=== PATIENT | female | born 1950 | race Two or more races ===

== ENCOUNTER 2024-08-17 19:02 | Emergency (ER) | payer BC, MEDICARE, SELFPAY ==
[2024-08-17 19:54] VITALS: BP 188/77; PULSE 61; RESP 20; TEMP 36.6; O2SAT 98
--- NOTE | 2024-08-17 20:04 | XR_ITS ---
Examination: Duplex scan of the lower extremity, unilateral right complete Date and time of exam: August 17, 2024 2145 hours INDICATIONS: Right leg pain beginning 2 days ago Technique: Duplex scan of the extremity veins using B-mode/grayscale imaging and Doppler spectral analysis and color flow Attention is directed to internal echogenicity, compression and augmentation involving these veins, color flow assessment, spectral analysis Findings: Major deep venous structures in the extremity demonstrate normal course and caliber. There is no evidence of deep vein thrombosis. Normal color flow and spectral analysis Impression: Negative for DVT..
[2024-08-17] MEDS: KETOROLAC INJ 60 MG/2 ML VIAL 30 MG IM (20:13)
[2024-08-17] MEDS: GABAPENTIN 300 MG CAPSULE PO (22:19)
[2024-08-17] MEDS: HYDROcodone/APAP 5/325 TABLET 1 TAB PO (22:19)
--- NOTE | 2024-08-18 03:34 | EDNOTE_ITS ---
<Statement entered by Candy Hutchison MD - 08/19/24 04:27> As co-signing physician, I was present and available for consult prn. I concur with the plan and care as documented by the midlevel provider. ED Extremity Problem RME/HPI General Chief complaint: Abdominal Pain Stated complaint: RIGHT ABD PAIN X YESTERDAY Time Seen by Provider: 08/17/24 20:04 Arrival date/time: 08/17/24 19:02 74F with history of HTN, HLD, and depression presents to ED with 2 days of R lower back pain that radiates down RLE along sciatic nerve path. Patient denies, CP, dizziness, leg swelling, SOB, and fall. Pain is with with movement and certain positions. Limitations: no limitations Related Data Home Medications ?Medication ?Instructions ?Recorded ?Confirmed atorvastatin 40 mg tablet 40 mg PO DAILY High Choleste rol 06/18/17 06/18/17 citalopram 40 mg tablet 40 mg PO DAILY 06/18/1707/03 Previous Rx's ?Medication ?Instructions ?Recorded docusate sodium 100 mg capsule 100 mg PO BID #60 caps 06/22/17 (Colace) tramadol 50 mg tablet 50 mg PO QID PRN pain #40 ta bs 06/22/17 Allergies Allergy/AdvReac Type Severity Reaction Status Date / Time No Known Allergies Allergy Verified 08/17/24 19:05 Review of Systems Review of Systems Systems Reviewed: All systems reviewed, normal except as documented Constitutional Constitutional: Reports system reviewed and no additional complaints, except as documented, Denies fever(s) and Denies headache(s) ENT Ears, Nose, Mouth, and Throat: Denies disequilibrium and Denies headache(s) Cardiovascular Cardiovascular: Reports system reviewed and no additional complaints, except as documented, Denies chest pain and Denies dyspnea Respiratory Respiratory: Reports system reviewed and no additional complaints, except as documented, Denies cough and Denies dyspnea Gastrointestinal Gastrointestinal: Reports system reviewed and no additional complaints, except as documented, Denies abdominal pain, Denies nausea and Denies vomiting Musculoskeletal Musculoskeletal: Reports as per HPI, Reports back pain and Reports radiating pain into limb Neurologic Neurologic: Reports system reviewed and no additional complaints, except as documented, Denies confusion, Denies disequilibrium and Denies headache(s) Psychiatric Psychiatric: Denies confusion Past Medical History Past Medical History CARDIAC: Positive Hypercholesterolemia and Hypertension; Negative Cardiac Disorders PSYCHO/SOCIAL: Positive Depression OTHER HISTORY: Negative Blood Transfusions, Blood Transfusion Reaction or Anesthesia Reactions Surgical History SURGICAL: Positive Hysterectomy Social History SMOKING STATUS: Never smoker SECOND HAND EXPOSURE: Yes SUBSTANCE USE: does not use ED Exam General Limitations: Present no limitations General appearance: Present alert and in no apparent distress Head Head exam: Present atraumatic Eye Eye exam: Present normal appearance, PERRL and EOMI ENT ENT exam: Present normal exam, normal oropharynx and mucous membranes moist Neck Neck exam: Present normal inspection, full ROM and trachea midline Chest Chest inspection: Present normal inspection and symmetric chest wall rise Respiratory Respiratory exam: Present normal lung sounds bilaterally Cardiovascular Cardiovascular exam: Present regular rate, normal rhythm and normal heart sounds Abdominal Exam Abdominal exam: Present soft and normal bowel sounds Extremities Exam Extremities exam: Present normal inspection and full ROM Back Exam Back exam: Present normal inspection and full ROM Neurological Exam Neurological exam: Present alert, oriented X3 and CN II-XII intact Psychiatric Psychiatric exam: Present normal affect and normal mood Skin Skin exam: Present warm, dry, intact and normal color Course Quality Measures none Orders Category Date Time Status US venous doppler LE RT Stat Exams 08/17/24 20:04 Completed Gabapentin [Neurontin] Med 08/17/24 21:55 Discontinued 300 mg PO X1 ONE HYDROcodone*/APAP 5/325 [[place] 5/325] Med 08/17/24 21:55 Discontinued 1 tab PO X1 ONE Ketorolac Inj [Toradol Inj] Med 08/17/24 20:04 Discontinued 30 mg IM X1 ONE Vital Signs Vital signs: Vital Signs Temperature 98 F 08/17/24 19:54 Pulse Rate 61 08/17/24 19:54 Respiratory Rate 20 08/17/24 19:54 Blood Pressure 188/77 H 08/17/24 19:54 Pulse Oximetry (%) 98 08/17/24 19:54 Oxygen Delivery Method Room Air 08/17/24 19:54 O2 at 98% on RA and WNLs Extremity Problem MDM Narrative MDM Narrative:: 74F with history of HTN, HLD, and depression presents to ED with 2 days of R lower back pain that radiates down RLE along sciatic nerve path. Patient denies, CP, dizziness, leg swelling, SOB, and fall. Pain is with with movement and certain positions. Physical exam reveals welll-appearing female. Patient is afebrile, calm, and alert. US neg for DVT. Resistor Inspector and meds given. Patient data External records reviewed:: [facility] previous records Clinical information provided by:: patient Social determinants that could affect healthcare access:: none Patient has the following chronic illnesses:: HTN, HLD, depression How is presenting disease/condition affected by chronic disease/condition?: exacerbated by Evaluation data The following diagnostics were reviewed and interpreted by me:: radiology exam(s) Lab and/or radiology exams considered but not ordered:: ordered Interpretation Summary: above Medications / Prescriptions Medications or Prescriptions considered but not ordered:: ordered Medication administrations:: Medication Administration History Discontinued Medications Hydrocodone Bitart/Acetaminophen (Hydrocodone/Apap 5/325 Tablet) 1 tab PO X1 ONE Stop: 08/17/24 21:56 Last Admin: 08/17/24 22:19 Dose: 1 tab Documented By: Gabapentin (Gabapentin 300 Mg Capsule) 300 mg PO X1 ONE Stop: 08/17/24 21:56 Last Admin: 08/17/24 22:19 Dose: 300 mg Documented By: Ketorolac Tromethamine (Ketorolac Inj 60 Mg/2 Ml Vial) 30 mg IM X1 ONE Stop: 08/17/24 20:05 Last Admin: 08/17/24 20:13 Dose: 30 mg Documented By: above Consultations Consultation(s) initiated? (list below): No Diagnosis Extremity Problem Differential Diagnosis: herpes zoster, gout, cellulitis, superficial thrombophlebitis, deep venous thrombosis of upper extremity, lower extremity edema, deep vein thrombosis of lower extremity and other (scatica) Most likely diagnosis given after review of the tests above:: scatica Admission Indicated Admission indicated?: not indicated Admission Request Was there a request for admission?: No Disposition Plan Disposition Plan: Discharge Discharge Attestation Discharge Attestation: The patient and all family members were given an opportunity to ask questions and understood the discharge instructions. Discharge instructions specifically effects, indications for sooner follow up or return to the emergency department, and the expected course of current diagnosis. Patient condition: Stable Discharge Plan Plan Patient Disposition: HOME (Self Care) Discharge Disposition comment: Stable Prescriptions/Referrals Prescriptions/Med Rec: No Action citalopram 40 mg Tablet 40 mg PO DAILY atorvastatin 40 mg Tablet 40 mg PO DAILY tramadol 50 mg tablet 50 mg PO QID MDD 8 PRN (Reason: pain) Qty: 40 0RF docusate sodium [Colace] 100 mg capsule 100 mg PO BID Qty: 60 0RF Referrals: No Primary/Family,Physician [Primary Care Provider] - In 1 week Problem List Clinical Impression: Sciatica Patient/Caregiver Discharge Instructions Education Materials: ED Sciatica Additional Instructions: Please follow-up with PCP within 24-48 hours and return immediately if symptoms worsen. If problem persists, recommend outpatient PT and/or MRI follow-up. In the meantime, rest, use ice/heat, and/or compression. Print Language: Cameroonian Stand Alone Forms: Cortney Award Info., Patient Portal Info Letter PA/AUTOMOBILE UPHOLSTERY TRIM INSTALLER Supervising Physician PA/AUTOMOBILE UPHOLSTERY TRIM INSTALLER Supervising Physician: Dr. Hutchison
== END 2024-08-17 23:59 | disposition home or self-care (01) ==
PROVIDERS: Emergency Provider Emergency Medicine
DX: M54.41 Lumbago with sciatica, right side (principal); I10 Essential (primary) hypertension; E78.5 Hyperlipidemia, unspecified; F32.A Depression, unspecified
CPT/HCPCS: 93971; 96372; 99284; J1885; A9270

== ENCOUNTER 2025-01-28 15:10 | Emergency (ER) | payer MEDICARE, SELFPAY ==
[2025-01-28 15:28] VITALS: BP 151/75; PULSE 71; RESP 20; TEMP 36.6; O2SAT 97; BMI 29.7
--- NOTE | 2025-01-28 15:36 | XR_ITS ---
Examination: Abdomen sonogram, Limited Date and time of exam: January 28, 2025, 1627 hours INDICATIONS: Onset epigastric pain today Technique: Real-time cox scale transabdominal sonographic images of the upper abdomen obtained. Findings: Absent gallbladder Common bile duct 0.5 cm Pancreatic head 2.9 cm Liver 13.5 cm fatty infiltration Normal hepatopetal portal venous Patent IVC IMPRESSION: Absent gallbladder Normal common bile duct
--- NOTE | 2025-01-28 15:36 | XR_ITS ---
EXAMINATION: PA chest single view TECHNIQUE: Upright PA chest single view Date and time: January 28, 2025, 1552 hours INDICATIONS: Chest pain today. FINDINGS: Normal heart size Probable fat pad at the left cardiophrenic angle. No pneumonia or pulmonary edema IMPRESSION: No pneumonia or pulmonary edema
--- NOTE | 2025-01-28 15:36 | EKG_ITS ---
[facility] Test Date: 2025-01-28 Pat Name: BELA VEGA Department: Room: - Gender: Female Pricer Bagger: : 1950 Requested By: Wendi Jiang Order Number: [id number] Reading MD: Wendi Jiang Measurements Intervals [place] Rate: 70 P: 18 OH: 169 QRS: 37 QRSD: 81 T: 29 QT: 400 QTc: 432 Interpretive Statements SINUS RHYTHM No previous ECG available for comparison /store/S0/[id number].pdf
[2025-01-28 16:28] LABS: Basophils # (Auto) 0.0 Thou/mm3 (0.0-0.2); Basophils % (Auto) 0 % (0-2.5); Eosinophils # (Auto) 0.1 Thou/mm3 (0.0-0.5); Eosinophils % (Auto) 1 % (0-10); Hematocrit 39.0 % (36.0-46.0); Hemoglobin 13.8 g/dL (12.0-16.0); Immature Granulocytes Auto 0.04 Thou/mm3 (0.00-0.00); Lymphocytes # (Auto) 3.0 Thou/mm3 (1.0-4.8); Lymphocytes % (Auto) 27 % (10-50); Mean Corpuscular HGB Conc 35.4 g/dl (31.0-37.0); Mean Corpuscular Hemoglobin 31.4 pg (25.0-35.0); Mean Corpuscular Volume 89 fL (80-100); Monocytes # (Auto) 1.0 Thou/mm3 (0.0-0.8); Monocytes % (Auto) 9 % (0-12); Neutrophils # (Auto) 6.9 Thou/mm3 (1.8-7.7); Neutrophils % (Auto) 63 % (37-80); Nucleated Red Blood Cell # 0.00 Thou/mm3 (0.00-0.00); Nucleated Red Blood Cell % 0 /100 WBC (0); Platelet Count 356 Thou/mm3 (140-440); RDW Standard Deviation 39.4 fL (36.4-46.3); Red Blood Count 4.40 Miln/mm3 (4.00-5.20); White Blood Count 11.1 Thou/mm3 (3.6-11.0)
[2025-01-28 16:31] LABS: Collection Type, Urine Clean Catch
[2025-01-28 16:35] LABS: Alanine Aminotransferase 43 U/L (10-49); Albumin, Serum 4.8 gm/dL (3.4-4.8); Albumin/Globulin Ratio 1.9 (1.2-2.2); Alkaline Phosphatase 129 U/L (46-116); Anion Gap 12 (7-16); Aspartate Amino Transferase 18 U/L (0-34); BUN/Creatinine Ratio 7 Ratio (12-20); Bilirubin,Total 0.5 mg/dL (0.3-1.2); Blood Urea Nitrogen < 5 mg/dL (9-23); Calcium 9.8 mg/dL (8.3-10.6); Calcium (Corrected) 9.8 mg/dL (8.5-10.1); Carbon Dioxide 21.9 mMol/L (20.0-31.0); Chloride 107 mMol/L (98-107); Creatinine (Component) 0.7 mg/dL (0.6-1.3); Estimated Creatinine Clearance 68.9 mL/min (>60); Globulin 2.5 gm/dL (2.3-3.5); Glucose 109 mg/dL (74-106); Lipase 52 U/L (12-53); Osmolality,Calculated 279 (275-295); Potassium 4.0 mMol/L (3.4-5.1); Sodium 141 mMol/L (136-145); Total Protein 7.3 gm/dL (5.7-8.2); Troponin I < 0.020 ng/mL (0.0-0.045); eGFR > 60 See Note
[2025-01-28 17:23] LABS: B-Type Natriuretic Peptide 46 pg/mL (0-100)
[2025-01-28 17:23] LABS: Bacteria,Urine 1+; Bilirubin,Urine Negative (Negative); Blood,Urine Negative (Negative); Clarity,Urine Clear (Clear/Hazy); Color,Urine Lt-Yellow (Lt Yel-Yel); Glucose, Urine Negative (Negative); Ketones,Urine 1+ (Negative); Leukocyte Esterase,Urine Positive (Negative); Nitrite,Urine Negative (Negative); PH,Urine 6.5 (5.0-7.0); Protein,Urine Negative (Neg - Trace); RBC,Urine 1 /hpf (0-3); Specific Gravity,Urine 1.009 (1.001-1.035); Squamous Epithelial Cell,Urine 6 /hpf (0-5); Urobilinogen,Urine Negative mg/dL (0.0-1.0); WBC,Urine 8 /hpf (0-5)
--- NOTE | 2025-01-28 17:47 | PD.EDABDPN ---
ED Abdominal Pain RME/HPI General Chief Complaint: Anxiety Stated complaint: Anxiety/burning sensation through body Time seen by provider: 01/28/25 15:29 Arrival date/time: 01/28/25 15:10 This is a case of 75-year-old female with history of anxiety and hypercholesterolemia with cholecystectomy came in in the emergency room due to epigastric pain for 3 days radiating to anterior chest wall no chest pain no palpitation no nausea no vomiting no constipation no diarrhea no fever no chills no blood in the stool patient also verbalized that she felt anxious and asking for medication denies any suicidal nor homicidal ideation denies any hallucination persistence of the symptoms this patient decided to start consult here in the emergency room Limitations: no limitations Related Data Home Medications ?Medication ?Instructions ?Recorded ?Confirmed atorvastatin 40 mg tablet 40 mg PO DAILY High Cholesterol 06/18/17 06/18/17 citalopram 40 mg tablet 40 mg PO DAILY 06/18/17 06/18/17 Previous Rx's ?Medication ?Instructions ?Recorded docusate sodium 100 mg capsule 100 mg PO BID #60 caps 06/22/17 (Colace) tramadol 50 mg tablet 50 mg PO QID PRN pain #40 tabs 06/22/17 famotidine 20 mg tablet (Pepcid) 20 mg PO BID #60 tabs 01/28/25 nitrofurantoin 100 mg PO BID #20 caps 01/28/25 monohydrate/macrocrystals 100 mg capsule (Macrobid) omeprazole 20 mg capsule,delayed 20 mg PO QDAY 30 days #30 caps 01/28/25 release Allergies Allergy/AdvReac Type Severity Reaction Status Date / Time No Known Allergies Allergy Verified 08/17/24 19:05 Review of Systems Review of Systems Systems Reviewed: All systems reviewed, normal except as documented Constitutional Constitutional: Reports system reviewed and no additional complaints, except as documented and Reports as per HPI ENT Ears, Nose, Mouth, and Throat: Denies dysphagia and Denies odynophagia Cardiovascular Cardiovascular: Reports system reviewed and no additional complaints, except as documented and Reports as per HPI Respiratory Respiratory: Reports system reviewed and no additional complaints, except as documented and Reports as per HPI Gastrointestinal Gastrointestinal: Reports system reviewed and no additional complaints, except as documented, Reports as per HPI, Reports abdominal pain, Denies belching, Denies bloating, Denies change in bowel habits, Denies change in stool character, Denies coffee ground emesis, Denies constipation, Denies cramping, Denies diarrhea, Denies dyspepsia, Denies dysphagia, Denies early satiety, Denies excessive flatus, Denies fecal incontinence, Denies heartburn, Denies hematemesis, Denies hematochezia, Denies loose stools, Denies melena, Reports nausea, Denies odynophagia, Denies tenesmus and Reports vomiting Genitourinary Genitourinary: Reports system reviewed and no additional complaints, except as documented and Reports as per HPI Neurologic Neurologic: Reports system reviewed and no additional complaints, except as documented and Reports as per HPI Past Medical History Past Medical History CARDIAC: Positive Hypercholesterolemia and Hypertension; Negative Cardiac Disorders PSYCHO/SOCIAL: Positive Depression OTHER HISTORY: Negative Blood Transfusions, Blood Transfusion Reaction or Anesthesia Reactions Surgical History SURGICAL: Positive Hysterectomy Social History SMOKING STATUS: Never smoker SECOND HAND EXPOSURE: Yes SUBSTANCE USE: does not use ED Exam General Limitations: Present no limitations General appearance: Present alert, in no apparent distress and other Head Head exam: Present atraumatic, normocephalic and normal inspection Eye Eye exam: Present normal appearance, PERRL and EOMI ENT ENT exam: Present normal exam, normal oropharynx and mucous membranes moist Neck Neck exam: Present normal inspection, full ROM and trachea midline; Absent tenderness, meningismus, lymphadenopathy or thyromegaly Chest Chest inspection: Present normal inspection and symmetric chest wall rise; Absent tenderness, rash or abscess Respiratory Respiratory exam: Present normal lung sounds bilaterally; Absent respiratory distress, wheezes, stridor, accessory muscle use or prolonged expiratory phase Cardiovascular Cardiovascular exam: Present regular rate, normal rhythm, normal heart sounds and other (No edema); Absent bradycardia, tachycardia, irregular rhythm, systolic murmur, diastolic murmur or clicks Abdominal Exam Abdominal exam: Present soft, tenderness (Mild tenderness in the epigastric area no CVA tenderness) and normal bowel sounds; Absent distention, guarding, rebound, rigidity, diminished bowel sounds, hyperactive bowel sounds, hypoactive bowel sounds, organomegaly, psoas sign, obturator sign, Martinez's sign, Rovsing's sign, tenderness at McBurney's Point or hernia Extremities Exam Extremities exam: Present normal inspection and full ROM Back Exam Back exam: Present normal inspection and full ROM Neurological Exam Neurological exam: Present alert, oriented X3, CN II-XII intact, normal gait and reflexes normal; Absent motor sensory deficit Psychiatric Psychiatric exam: Present normal affect and normal mood Skin Skin exam: Present warm, dry, intact and normal color Course Quality Measures none Orders Category Date Time Status EKG (ED ONLY) *Do not use* NOW Care 01/28/25 15:36 Completed EKG (ED Only) Stat Exams 01/28/25 15:36 Draft US gall bladder Stat Exams 01/28/25 15:36 Completed XR chest 1V portable Stat Exams 01/28/25 15:36 Completed BNP [B-Type Natriuretic Peptide] Stat Lab 01/28/25 16:03 Completed CBC Stat Lab 01/28/25 16:03 Completed Comprehensive Metabolic Panel Stat Lab 01/28/25 16:03 Completed Lipase Stat Lab 01/28/25 16:03 Completed Troponin I Stat Lab 01/28/25 16:03 Completed Urinalysis Stat Lab 01/28/25 16:15 Completed LORazepam [Ativan] Med 01/28/25 17:21 Discontinued 1 mg PO X1 ONE Vital Signs Vital signs: Vital Signs Temperature 98 F 01/28/25 15:28 Pulse Rate 71 01/28/25 15:28 Respiratory Rate 20 01/28/25 15:28 Blood Pressure 151/75 H 01/28/25 15:28 Pulse Oximetry (%) 97 01/28/25 15:28 Oxygen Delivery Method Room Air 01/28/25 15:28 Oxygen saturation is 97% in room air Abdominal Pain MDM MDM Narrative MDM Narrative:: This is a case of 75-year-old female with history of anxiety and hypercholesterolemia with cholecystectomy came in in the emergency room due to epigastric pain for 3 days radiating to anterior chest wall no chest pain no palpitation no nausea no vomiting no constipation no diarrhea no fever no chills no blood in the stool patient also verbalized that she felt anxious and asking for medication denies any suicidal nor homicidal ideation denies any hallucination persistence of the symptoms this patient decided to start consult here in the emergency room physical examination patient is awake alert oriented not in distress nontoxic looking well-hydrated well-nourished patient is anxious no depression no suicidal no homicidal ideation no hallucination lungs sound is clear no crackles no rales no retraction no stridor heart normal rate regular rhythm no murmur vital signs stable BP stable not tachycardic not tachypneic not hypoxic afebrile abdominal exam is benign mild tenderness on the epigastric area no guarding no rebound no rigidity negative psoas negative straight and negative Rovsing's no McBurney's no Martinez sign negative CVA tenderness blood test showed leukocytosis at 11,000 no anemia kidney and liver function is normal no electrolyte imbalance lipase is normal patient has WBC in the urine suggestive of urinary tract infection sinus rhythm heart rate of 70 US gallbladder is also normal after giving Ativan 1 mg patient condition improved and resolved no chest pain no abdominal pain patient will be discharged as gastritis patient was prescribed with omeprazole and Pepcid she was advised to see a air cargo ground operations supervisor for further evaluation and treatment and possible EGD she was also advised to see a crime prevention worker for chest pain for possible echocardiogram stress test and Holter monitor at this point patient EKG was sinus rhythm troponin is negative BNP is negative I do not think patient is having myocardial infarction nor pulmonary embolism patient also was prescribed with Macrobid for urinary tract infection patient will continue Celexa for anxiety and will follow-up with a psychiatrist for any worsening symptoms or any emergent concerns she will return in the emergency room immediately or call 911 and follow-up with PCP for reevaluation Patient was discharged with comfortable condition walking with stable gait. Patient verbalized no further complains explained diagnosis and answered patient question. Patient is comfortable with the proposed management plan including the need to follow up with his/her primary care physician and any specialist if applicable Discussed patient for any urgent condition or worsening sx, He/She needed to go to emergency room immediately or call 911. Patient acknowledge the responsibility to follow up as instructed and to monitor her/his symptoms. For any persistence of the symptoms for more than 3-5 days return precaution advised. Discussed the result of the test and was given printed discharge instruction Patient data External records reviewed:: [facility] previous records Clinical information provided by:: patient Social determinants that could affect healthcare access:: none Patient has the following chronic illnesses:: None How is presenting disease/condition affected by chronic disease/condition?: no chronic disease Evaluation data The following diagnostics were reviewed and interpreted by me:: lab results, radiology exam(s) and EKG tracing(s) Lab and/or radiology exams considered but not ordered:: Reviewed Interpretation Summary: Reviewed Medications / Prescriptions Medications or Prescriptions considered but not ordered:: Given Medication administrations:: Medication Administration History Discontinued Medications Lorazepam (Lorazepam 0.5 Mg Tablet) 1 mg PO X1 ONE Stop: 01/28/25 17:22 Last Admin: 01/28/25 17:35 Dose: 1 mg Documented By: SF Given Consultations Consultation(s) initiated? (list below): No Diagnosis Differential diagnosis abdominal pain: abdominal pain, gastroenteritis, pancreatitis and other (Gastritis urinary tract infection) Most likely diagnosis given after review of the tests above:: Gastritis urinary tract infection Admission Indicated Admission indicated?: not indicated Explain why admission is indicated or not indicated:: Not indicated Admission Request Was there a request for admission?: No Admission Attestation Admission request attestation: Not indicated Disposition Plan Disposition Plan: Discharge Discharge Attestation Discharge Attestation: The patient and all family members were given an opportunity to ask questions and understood the discharge instructions. Discharge instructions specifically effects, indications for sooner follow up or return to the emergency department, and the expected course of current diagnosis. Patient condition: Stable Discharge Plan Plan Patient Disposition: HOME (Self Care) Patient condition on transfer: Stable Prescriptions/Referrals Prescriptions/Med Rec: New omeprazole 20 mg capsule,delayed release(DR/EC) 20 mg PO QDAY 30 Days Qty: 30 0RF famotidine [Pepcid] 20 mg tablet 20 mg PO BID Qty: 60 0RF nitrofurantoin monohyd/m-cryst [Macrobid] 100 mg capsule 100 mg PO BID Qty: 20 0RF Rx Instructions: must administer with a meal/food No Action citalopram 40 mg Tablet 40 mg PO DAILY atorvastatin 40 mg Tablet 40 mg PO DAILY tramadol 50 mg tablet 50 mg PO QID MDD 8 PRN (Reason: pain) Qty: 40 0RF docusate sodium [Colace] 100 mg capsule 100 mg PO BID Qty: 60 0RF Referrals: Adalid Sorto PA-C [Primary Care Provider] - In 1 week Problem List Clinical Impression: Chest pain of unknown etiology, Gastritis, Urinary tract infection, Anxiety Patient/Caregiver Discharge Instructions Education Materials: Urinary Tract Infections in Women, ED Anxiety Reaction, ED Chest Pain, Uncertain Cause, ED Gastritis (Adult) Additional Instructions: Follow-up with your primary care physician in 2 days for reevaluation and to be referred to crime prevention worker for chest pain for possible echocardiogram stress test and Holter monitor he also need to see a air cargo ground operations supervisor for your gastritis and possible EGD and psychiatrist for anxiety continue your Celexa for anxiety worsening symptoms recurrence persistent or any emergent concern call 911 or go to the nearest emergency room take your medication as directed avoid skipping of meals avoid spicy food avoid alcohol soda coffee avoid fatty fried high cholesterol food keep hydrated Pedialyte Gatorade for hydration finish the course of antibiotic Print Language: American Stand Alone Forms: Cortney Award Info., Patient Portal Info Letter PA/WEAPONS MECHANIC Supervising Physician PA/WEAP[employer] MECHANIC Supervising Physician: Dr. Baxter
== END 2025-01-28 18:09 | disposition home or self-care (01) ==
PROVIDERS: Nurse Practitioner Family; Emergency Provider Family Medicine; PCP Physician Assistant
DX: R07.9 Chest pain, unspecified (principal)
CPT/HCPCS: 36415; 71045; 76705; 80053; 81001; 83690; 83880; 84484; 85025; 93005; 99283; A9270